=== PATIENT | male | born 1950 | race Caucasian/White ===

== ENCOUNTER 2017-04-27 12:19 | Day surgery (SDC) | payer MEDICARE, BC ==
[~2017-04-27] VITALS: Ht 167.6 cm; Wt 81.2 kg
[~2017-04-27 12:19] MED LIST: ALAVERT D-12 A1 EACH PO; AMOXICILLIN500 MG PO; AZELASTINE HCL6 ML OPTH; BENZONATATE200 MG PO; CLARITIN10 M2 PO; HYDROCODON-ACE1 EA11 PO; IMODIUM A-D2 M2 PO; IMODIUM MULTI-1 EACH PO; IRON325 MG PO; LIPITOR10 MG PO; MIRALAX17 GM PO; NASACORT10.8 ML NAS; OMEPRAZOLE MAGN20 MG PO; OXYCODONE HCL5 MG PO; PROZAC20 MG PO; TRAZODONE HCL50 MG PO; VITAMIN C250 MG PO; XARELTO10 MG PO
[2017-04-27] MEDS ORDERED: BRILINTA90 MG PO (12:36)
[2017-04-27] MEDS ORDERED: ASPIR-LOW81 MG PO (12:37)
--- NOTE | 2017-04-27 13:22 | NUR ---
04/27/17 1322 Carlos Shaffer 1314 PT ARRIVED TO PACU, O2 VIA NC AT 3L. PT SLEEPING, AWAKENS TO VOICE. VITALS STABLE.
--- NOTE | 2017-05-01 09:20 | OR ---
[facility] [address], [place] [address] Signed DATE OF OPERATION: 04/27/2017 SURGEON: Tessy Upton MD PREOPERATIVE DIAGNOSIS: Presume symptomatic reflux. POSTOPERATIVE DIAGNOSES: 1. No evidence of esophagitis or hiatal hernia. 2. Antral gastritis. PROCEDURE: Esophagogastroduodenoscopy with biopsy. ANESTHESIA: Intravenous sedation, fentanyl 100 mcg, Versed 4 mg. INDICATION: A 66-year-old white man is a patient of Dr. Jose J Garcia, previously Dr. Thomas Haas, and is considered clinically to have reflux symptoms. He has never had upper endoscopy or upper GI. He has been prescribed omeprazole in the past, which is beneficial to him. He has no associated dysphagia or hematemesis. He has been bothered somewhat by diarrhea and has been taking Imodium for a long time. He has undergone cholecystectomy in the past, though his diarrhea antedated to cholecystectomy. He is having no associated dysphagia or weight loss and no constitutional symptoms otherwise. Of note, he suffered a myocardial infarction in May of 2016, manifested by shortness of breath, not chest pain and underwent coronary stenting. He is taking Brilinta and anti-platelet therapy and continues to do so. He is taking omeprazole daily currently. He recently found to have an increasing PSA tests for which he underwent prostatic biopsy yesterday. He was off his Brilinta for this purpose and I managed to schedule him in this timeframe, so as to be off the Brilinta, but not in a prolonged way. He understands the risks of bleeding, infection, and perforation related to upper endoscopy and wished to proceed with it. FINDINGS: I saw no evidence of esophagitis particular. There is certainly no Sinclair epithelium, stricture, or neoplasm. The stomach did have antral gastritis, was not severe. There was no ulcer. CLOtest was negative. Duodenum was normal. The flap valve appeared Electronically Signed By: TESSY UPTON MD 05/01/17 0920 PATIENT NAME: JOSE PRESSLEY OPERATIVE REPORT DATE OF : 48 REPORT #: [id number] PHYSICIAN: TESSY UPTON MD PCP: TOHMAS HAAS MD REPORT IS CONFIDENTIAL AND NOT TO BE RELEASED WITHOUT AUTHORIZATION [facility] [address], [place] [address] Signed reasonably good as well. DESCRIPTION OF PROCEDURE: The patient was brought to the endoscopy suite and given topical Hurricaine spray hypopharyngeal anesthesia and placed in lateral decubitus position. He was given intravenous sedation to the point of slurred speech and nystagmus. A bite block was placed. An Olympus video upper endoscope was passed in the hypopharynx. The vocal cords appeared normal. Scope was advanced into the esophagus without problem. Throughout its length, it was entirely normal with no evidence of Sinclair epithelium, stricture, neoplasm, inflammation, or other issue. The scope was passed to the stomach, which was insufflated with air. Rugal folds appeared normal. Antral motility was normal. Antrum appeared to have mild erythematous streaking, but no sign of ulceration particularly. The pylorus was normal and nondeformed. The scope was passed through into the duodenum, which was normal. The ampulla could be easily identified and accessory ampulla was noted as well. Good bile flow was noted. Biopsies were taken of the duodenum and there was no sign of inflammation. The scope was withdrawn to the antrum, where biopsies were then obtained. CLOtest biopsies were also obtained. Retroflexed view was undertaken showing a normal GE junction overall. The scope was withdrawn to the distal esophagus, which was normal. Biopsies were obtained, nevertheless and the scope withdrawn and midesophageal biopsies also performed. The patient was then taken to the recovery room in good condition. CONCLUDING DIAGNOSIS: No evidence of esophagitis or hiatal hernia or Sinclair epithelium. Antral gastritis noted. PLAN: If he is benefitted from his Prilosec on a daily basis that is reasonable to continue with. He could transition to Zantac 150 mg p.o. b.i.d. instead if he wished. I am happy to see him again as needed. I will review his pathology reports, but at present it seems unlikely that reflux issue at this point. MD MATTHEW Fernandez/TAVO /[id number] Electronically Signed By: TESSY UPTON MD 05/01/17 0920 PATIENT NAME: JOSE PRESSLEY OPERATIVE REPORT DATE OF : 48 REPORT #: [id number] PHYSICIAN: TESSY UPTON MD PCP: THOMAS HAAS MD REPORT IS CONFIDENTIAL AND NOT TO BE RELEASED WITHOUT AUTHORIZATION [address] [address] Signed cc: Jose J Garcia DO Copies: JOSE J GARCIA DO ~ Electronically Signed By: TESSY UPTON MD 05/01/17 0920 PATIENT NAME: JOSE PRESSLEY OPERATIVE REPORT DATE OF : 48 REPORT #: [id number] PHYSICIAN: TESSY UPTON MD PCP: THOMAS HAAS MD REPORT IS CONFIDENTIAL AND NOT TO BE RELEASED WITHOUT AUTHORIZATION
== END 2017-04-27 14:10 | disposition home or self-care (01) ==
LOC: DS 12:19 → OPS 12:19 → DS 13:00 → OPS 13:00
PROVIDERS: Surgery
PROC: 0DB78ZX Excision of Stomach, Pylorus, Via Natural or Artificial Opening Endoscopic, Diagnostic (ICD-10-PCS; 2017-04-27)
PROC: 0DB28ZX Excision of Middle Esophagus, Via Natural or Artificial Opening Endoscopic, Diagnostic (ICD-10-PCS; 2017-04-27)
PROC: 0DB38ZX Excision of Lower Esophagus, Via Natural or Artificial Opening Endoscopic, Diagnostic (ICD-10-PCS; 2017-04-27)
PROC: 0DB98ZX Excision of Duodenum, Via Natural or Artificial Opening Endoscopic, Diagnostic (ICD-10-PCS; principal; 2017-04-27 13:00)
DX: K20.9 Esophagitis, unspecified (principal); K31.9 Disease of stomach and duodenum, unspecified; I25.2 Old myocardial infarction; I25.10 Atherosclerotic heart disease of native coronary artery without angina pectoris; Z88.8 Allergy status to other drugs, medicaments and biological substances; Z95.5 Presence of coronary angioplasty implant and graft; Z98.890 Other specified postprocedural states; Z96.643 Presence of artificial hip joint, bilateral; Z90.49 Acquired absence of other specified parts of digestive tract
CPT/HCPCS: 88305; G0500; J0690; J2250; J3010; J7120

== ENCOUNTER 2019-03-23 22:11 | Emergency (ER) | payer MEDICARE, BC ==
[~2019-03-23] VITALS: Ht 170.2 cm; Wt 83.9 kg
[~2019-03-23 22:11] MED LIST changes: +ASPIR-LOW81 MG PO; +BRILINTA90 MG PO; +METOPROLOL SUCC25 MG PO; +NITROGLYCERIN0.4 MG SL; +TOPROL XL50 MG
[2019-03-23] MEDS ORDERED: DICYCLOMINE HCL20 MG PO (23:11)
== END 2019-03-24 00:20 | disposition home or self-care (01) ==
LOC: ED 22:11
DX: R10.33 Periumbilical pain (principal); R11.2 Nausea with vomiting, unspecified; R19.7 Diarrhea, unspecified; K21.9 Gastro-esophageal reflux disease without esophagitis; I25.2 Old myocardial infarction; Z88.8 Allergy status to other drugs, medicaments and biological substances; Z79.899 Other long term (current) drug therapy; Z79.82 Long term (current) use of aspirin
CPT/HCPCS: 80053; 81001; 83690; 85025; 96361; 96374; 99284-25; J2765; J7030

== ENCOUNTER 2021-03-22 13:41 | Emergency (ER) | payer OTHER, MEDICARE, BC ==
[~2021-03-22] VITALS: Ht 170.2 cm; Wt 83.9 kg
[~2021-03-22 13:41] MED LIST changes: +DICYCLOMINE HCL20 MG PO
[2021-03-22] MEDS ORDERED: METOPROLOL SUCC25 MG PO (13:59)
[2021-03-22] MEDS ORDERED: HYDROCODON-ACE1 EAC8 PO (14:54)
== END 2021-03-22 15:26 | disposition home or self-care (01) ==
LOC: ED 13:41
DX: S43.401A Unspecified sprain of right shoulder joint, initial encounter (principal); E78.00 Pure hypercholesterolemia, unspecified; K21.9 Gastro-esophageal reflux disease without esophagitis; I25.2 Old myocardial infarction; Z85.46 Personal history of malignant neoplasm of prostate; Z88.8 Allergy status to other drugs, medicaments and biological substances; Z79.899 Other long term (current) drug therapy; Z79.82 Long term (current) use of aspirin; W11.XXXA Fall on and from ladder, initial encounter
CPT/HCPCS: 73030; 99283-25